=== PATIENT | female | born 1985 | race Caucasian/White ===

== ENCOUNTER 2017-09-16 20:44 | Emergency (ER) | payer OTHER ==
[~2017-09-16] VITALS: Ht 165.1 cm; Wt 78.2 kg
[2017-09-16 21:52] LABS: APPEARANCE SL.HAZY ((CLEAR)); BILIRUBIN NEGATIVE; BLOOD SMALL; COLOR YELLOW ((YELLOW)); GLUCOSE (STRIP) NEGATIVE; KETONES NEGATIVE; LEUKOCYTES LARGE; NITRITE NEGATIVE; PROTEIN (STRIP) 30; SPECIFIC GRAVITY 1.017 (1.000-1.030); UROBILINOGEN 0.2 MG/DL (0.2-1.0)
[2017-09-16 22:01] LABS: BACTERIA 1+ /HPF; EPITHELIAL CELLS 1+ /HPF; MUCUS TRACE /LPF; UCUL ADDED? YES; WHITE BLOOD CELLS TNTC /HPF (0-5)
[2017-09-16 22:15] LABS: HEMATOCRIT 38.9 % (36.0-46.0); HEMOGLOBIN 13.1 G/DL (11.9-15.5); MCH 29.5 PG (29.0-34.0); MCHC 33.7 G/DL (30.0-36.0); MCV 87.6 FL (83-99); PLATELET COUNT 314 K/uL (156-360); RBC DIS.WIDTH-CV 13.2 % (11.8-14.6); RBC DIS.WIDTH-SD 42.7 % (39-53); RED BLOOD COUNT 4.44 M/uL (3.80-5.20); WHITE BLOOD COUNT 10.5 K/uL (4.1-10.2)
[2017-09-16 22:27] LABS: ALBUMIN 4.3 g/dL (3.2-4.8); CHLORIDE 106 mEq/L (99-109); SODIUM 140 mEq/L (136-147)
[2017-09-16 22:29] LABS: GLUCOSE 87 mg/dL (70-99); TOTAL PROTEIN 7.4 g/dL (6.4-8.3)
[2017-09-16 22:31] LABS: TOTAL BILIRUBIN 0.5 mg/dL (0.0-1.0)
[2017-09-16 22:33] LABS: ALKALINE PHOSPHATASE 88 IU/L (3-129); CREATININE 0.8 mg/dL (0.6-1.3)
[2017-09-16 22:34] LABS: UREA NITROGEN (BUN) 14 mg/dL (9-23)
[2017-09-16 22:35] LABS: AST (GOT) 12 IU/L (2-34)
[2017-09-16 22:36] LABS: ALT (GPT) 11 IU/L (3-49)
[2017-09-16 22:46] LABS: QUANTITATIVE HCG < 4.0 MIU/ML
[2017-09-16 22:53] LABS: GFR ESTIMATE (CALCULATED) > 59 mL/min/
[2017-09-17] MEDS ORDERED: TRAMADOL HCL50 MG PO (00:55)
[2017-09-17] MEDS ORDERED: CIPRO500 MG PO (00:55)
[2017-09-17] MEDS ORDERED: PYRIDIUM100 MG PO (01:25)
[2017-09-17 01:33] LABS: SOURCE SWAB
[2017-09-17 01:52] VITALS: BP 124/84
== END 2017-09-17 01:54 | disposition home or self-care (01) ==
LOC: EME 20:44 → EXP 20:44
PROVIDERS: Physician Assistant
DX: N10 Acute pyelonephritis (principal); Z86.14 Personal history of Methicillin resistant Staphylococcus aureus infection; Z88.1 Allergy status to other antibiotic agents
CPT/HCPCS: 80053; 81003; 84702; 85027; 87077; 87086; 87186; 87210; 87491; 87591; 99281; 99284; J0696